=== PATIENT | female | born 1975 | race Caucasian/White ===

== ENCOUNTER 2018-04-07 12:56 | Day surgery (SDC) | payer OTHER ==
[~2018-04-07] VITALS: Ht 162.6 cm; Wt 141.1 kg
[~2018-04-07 12:56] MED LIST: AMOX500 PO; ARIP10 PO; Abilify5 MG; CYCL10 PO; CYRED 28 DAY T1 EACH PO; ESTR.1TPW TOP; ESTR2 PO; GLIP5ER PO; HYDACE5 PO; HYDR1TAB94 PO; IBUHYD PO; IBUP600 PO; IBUP800 PO; LIDO2L MM; Lomotil Tablet1 EACH PO; METF500C PO; OXYB5 PO; PSEU120ER; Pseudoephedrine30 MG PO; SERT100 PO; SLEEP MEDICATION; TRAZ100 PO; TRAZ50 PO
== END 2018-04-07 22:55 | disposition home or self-care (01) ==
LOC: ORSCMMR 12:56 → ORD 15:00 → ORSCMMR 15:00
PROVIDERS: Internal Medicine Gastroenterology
PROC: 0DJD8ZZ Inspection of Lower Intestinal Tract, Via Natural or Artificial Opening Endoscopic (ICD-10-PCS; principal; 2018-04-07 15:00)
DX: Z12.11 Encounter for screening for malignant neoplasm of colon (principal); K64.4 Residual hemorrhoidal skin tags; Z86.010 Personal history of colon polyps; G47.33 Obstructive sleep apnea (adult) (pediatric); K21.9 Gastro-esophageal reflux disease without esophagitis; F32.9 Major depressive disorder, single episode, unspecified; E11.9 Type 2 diabetes mellitus without complications; E66.01 Morbid (severe) obesity due to excess calories; Z68.43 Body mass index [BMI] 50.0-59.9, adult; Z79.84 Long term (current) use of oral hypoglycemic drugs; Z79.899 Other long term (current) drug therapy
CPT/HCPCS: 82947; J7120

== ENCOUNTER → 2018-05-16 | Outpatient (CLI) | payer OTHER ==
[2018-05-16 17:13] LABS: Alanine Aminotransfer (ALT/SGP 74 U/L (12-78); Albumin, Blood 4.2 g/dL (3.4-5.0); Albumin/Globulin Ratio 1.2 (0.8-1.8); Alk Phos 76 U/L (50-136); Anion Gap 9 mmol/L (6-16); Aspartate Aminotrans (AST/SGOT 57 U/L (12-37); Bilirubin, Total 0.6 mg/dL (0.1-1.0); Blood Urea Nitrogen 9 mg/dL (8-24); CO2, Blood 23 mmol/L (21-32); Calcium, Blood 8.9 mg/dL (8.5-10.1); Chloride, Blood 106 mmol/L (98-108); Creatinine, Blood 0.75 mg/dL (0.40-1.00); Globulin, Blood 3.4 g/dL (2.2-4.0); Glomerular Filtration Rate >60 (60-); Glucose, Blood 158 mg/dL (70-99); Potassium, Blood 4.3 mmol/L (3.5-5.5); Sodium, Blood 138 mmol/L (136-145); Total Protein, Blood 7.6 g/dL (6.4-8.2)
== END | disposition home or self-care (01) ==
LOC: LAB SHORT 10:00 → LAB 10:00
PROVIDERS: Internal Medicine Hematology & Oncology
DX: R16.1 Splenomegaly, not elsewhere classified (principal)
CPT/HCPCS: 80053

== ENCOUNTER → 2018-05-17 | Outpatient (CLI) | payer OTHER ==
[2018-05-17 13:19] LABS: Adenovirus F 40/41 Not Detected (NOT DETECT); Astrovirus Not Detected (NOT DETECT); Campylobacter Sp Not Detected (NOT DETECT); Cryptosporidium Not Detected (NOT DETECT); Cyclospora Cayetanensis Not Detected (NOT DETECT); E. Coli O157 Not Detected (NOT DETECT); Entamoeba Histolytica Not Detected (NOT DETECT); Enteroaggregative E. coli-EAEC Not Detected (NOT DETECT); Enteropathogenic E. coli-EPEC Not Detected (NOT DETECT); Enterotoxigenic E. coli-ETEC Not Detected (NOT DETECT); Giardia Lamblia Not Detected (NOT DETECT); Norovirus GI/GII Not Detected (NOT DETECT); Plesiomonas Shigelloides Not Detected (NOT DETECT); Rotavirus A Not Detected (NOT DETECT); Salmonella Sp Not Detected (NOT DETECT); Sapovirus Not Detected (NOT DETECT); Shiga Toxin-prod E. coli-STEC Not Detected (NOT DETECT); Shigella/Enteroin E. coli-EIEC Not Detected (NOT DETECT); Vibrio Cholerae Not Detected (NOT DETECT); Vibrio Sp Not Detected (NOT DETECT); Yersinia Enterocolitica Not Detected (NOT DETECT)
== END | disposition home or self-care (01) ==
LOC: LAB SHORT 13:18 → LAB 13:18
PROVIDERS: Internal Medicine Hematology & Oncology
DX: R19.7 Diarrhea, unspecified (principal); R16.1 Splenomegaly, not elsewhere classified; R10.9 Unspecified abdominal pain
CPT/HCPCS: 87507

== ENCOUNTER 2018-09-20 06:00 | Day surgery (SDC) | payer OTHER ==
[~2018-09-20] VITALS: Ht 162.6 cm; Wt 133.4 kg
--- NOTE | 2018-09-20 07:00 | NUR ---
Ambulatory in [facility] warming gown applied. History, Chart, Medications and Allergies reviewed before start of procedure.Lungs clear T/O to Auscultation. Patient confirms NPO status and agrees with scheduled surgery. DIFFICULT TO PLACE IV. PT TOLERATING PROCEDURE WELL. STATES " THAT IS NORMAL FOR ME". MOM AT BEDSIDE.
--- NOTE | 2018-09-20 10:13 | NUR ---
PERCOCET GIVEN PER ORDER Discharge instructions reviewed with patient. Patient verbalizes understanding. Copy given to patient to take home. MOM AT BEDSIDE. VSS. PT ALSO GIVEN INFLATABLE CUSHION AND SQUIRT BOTTLE AND GAUZE TO TAKE HOME FOR USE.
--- NOTE | 2018-09-20 10:48 | NUR ---
Discharged via wheelchair to private car for ride home.
== END 2018-09-20 10:40 | disposition home or self-care (01) ==
LOC: ORSCMMR 06:00 → ORD 07:30 → ORSCMMR 07:30
PROVIDERS: Surgery
PROC: 06BY0ZC Excision of Hemorrhoidal Plexus, Open Approach (ICD-10-PCS; principal; 2018-09-20 07:30)
DX: K64.4 Residual hemorrhoidal skin tags (principal); K64.2 Third degree hemorrhoids; K64.1 Second degree hemorrhoids; E11.9 Type 2 diabetes mellitus without complications; G47.33 Obstructive sleep apnea (adult) (pediatric); E66.01 Morbid (severe) obesity due to excess calories; Z68.43 Body mass index [BMI] 50.0-59.9, adult; Z79.899 Other long term (current) drug therapy
CPT/HCPCS: 82947; 88304; J0330; J2250; J2370; J2710; J3010; J7120

== ENCOUNTER 2018-09-21 18:45 | Emergency (ER) | payer OTHER ==
[~2018-09-21] VITALS: Ht 162.6 cm; Wt 136.1 kg
[2018-09-21 21:30] LABS: Source, Urine Clean Catch
[2018-09-21 21:32] LABS: Appearance, Urine Clear (Clear); Bilirubin, Urine Neg (Neg); Blood, Urine Neg (Neg); Color, Urine Yellow (P-Yellow); Glucose Qualitative, Urine Neg (Neg); Ketones, Urine Neg (Neg); Leukocyte Esterase, Urine Neg (Neg); Nitrite, Urine Neg (Neg); Protein, Urine Neg (Neg); Urobilinogen, Urine NORM (Normal)
== END 2018-09-21 22:33 | disposition home or self-care (01) ==
LOC: ER 18:45
PROVIDERS: Emergency Medicine
DX: R33.9 Retention of urine, unspecified (principal); F32.9 Major depressive disorder, single episode, unspecified; Z79.899 Other long term (current) drug therapy
CPT/HCPCS: 51702; 51798; 81003; 99283

== ENCOUNTER → 2018-10-08 | Outpatient (CLI) | payer OTHER | END | disposition home or self-care (01) | LOC: LAB EV 17:11 → LAB SHORT 17:11 | DX: R10.9 Unspecified abdominal pain (principal) | CPT/HCPCS: 87086 ==

== ENCOUNTER 2018-12-06 23:59 | Emergency (ER) | payer OTHER ==
[~2018-12-06] VITALS: Ht 162.6 cm; Wt 136.1 kg
[2018-12-07 00:54] LABS: Alanine Aminotransfer (ALT/SGP 80 U/L (12-78); Albumin, Blood 3.5 g/dL (3.4-5.0); Alk Phos 87 U/L (50-136); Anion Gap 8 mmol/L (6-16); Aspartate Aminotrans (AST/SGOT 29 U/L (12-37); Bilirubin, Total 0.6 mg/dL (0.1-1.0); Blood Urea Nitrogen 12 mg/dL (8-24); Bun/Creatinine Ratio 15.5 (12.0-20.0); CO2, Blood 25 mmol/L (21-32); Calcium, Blood 8.4 mg/dL (8.5-10.1); Chloride, Blood 104 mmol/L (98-108); Creatinine, Blood 0.78 mg/dL (0.40-1.00); Globulin, Blood 3.6 g/dL (2.2-4.0); Glomerular Filtration Rate >60 (60-); Glucose, Blood 406 mg/dL (70-99); Potassium, Blood 3.8 mmol/L (3.5-5.5); Sodium, Blood 137 mmol/L (136-145); Total Protein, Blood 7.1 g/dL (6.4-8.2)
[2018-12-07] MEDS ORDERED: METF500 PO (02:04)
== END 2018-12-07 03:00 | disposition home or self-care (01) ==
LOC: ER 23:59
PROVIDERS: Emergency Medicine
DX: R73.9 Hyperglycemia, unspecified (principal); F32.9 Major depressive disorder, single episode, unspecified; G47.30 Sleep apnea, unspecified
CPT/HCPCS: 36415; 80053; 82947; 96360; 99284-25; J1815; J7030

== ENCOUNTER → 2019-05-02 | Outpatient (CLI) | payer OTHER ==
[~2019-05-02] MED LIST changes: +METF500 PO
== END | disposition home or self-care (01) ==
LOC: LAB SHORT 18:40 → LAB EV 18:40
DX: N39.0 Urinary tract infection, site not specified (principal)
CPT/HCPCS: 87086

== ENCOUNTER 2019-06-30 07:05 | Day surgery (SDC) | payer OTHER ==
[~2019-06-30] VITALS: Ht 154.9 cm; Wt 136.6 kg
[~2019-06-30 07:05] MED LIST changes: +BASAGLAR SC
--- NOTE | 2019-06-30 08:19 | NUR ---
History, Chart, Medications and Allergies reviewed before start of procedure. Patient States Post-Procedure ride home has been arranged. Lungs clear T/O to Auscultation.
--- NOTE | 2019-06-30 08:43 | NUR ---
06/30/19 0843 Dawn Reza PROCEDURED ROOM ENDO RM #1. MONITOR INTACT WITH CONTINUOUS PULSE OXIMETRY AND INTERMITTENT BP.
--- NOTE | 2019-06-30 09:25 | NUR ---
"DAY SURGERY RN | DISCHARGE VSS. A/O. DENIES PAIN AND NAUSEA. DISCHARGE INSTRUCTIONS GIVEN TO PATIENT. NO ISSUES. TAKEN IN WHEELCHAIR TO PATIENT ENTRANCE BY VOLUNTEER. FAMILY IS RIDE HOME."
== END 2019-06-30 23:52 | disposition home or self-care (01) ==
LOC: ORSCMMR 07:05 → ORD 08:30 → ORSCMMR 23:52
PROVIDERS: Internal Medicine Gastroenterology
PROC: 0DJ08ZZ Inspection of Upper Intestinal Tract, Via Natural or Artificial Opening Endoscopic (ICD-10-PCS; principal; 2019-06-30 08:30)
DX: K74.60 Unspecified cirrhosis of liver (principal); Z87.19 Personal history of other diseases of the digestive system; K21.9 Gastro-esophageal reflux disease without esophagitis; F32.9 Major depressive disorder, single episode, unspecified; G47.30 Sleep apnea, unspecified; E66.9 Obesity, unspecified; Z68.43 Body mass index [BMI] 50.0-59.9, adult; E55.9 Vitamin D deficiency, unspecified; E11.9 Type 2 diabetes mellitus without complications; Z79.82 Long term (current) use of aspirin; Z79.899 Other long term (current) drug therapy
CPT/HCPCS: 82947; J2001; J2250; J2704; J7120

== ENCOUNTER → 2019-08-04 | Outpatient (CLI) | payer OTHER ==
[2019-08-04 19:10] LABS: BASOPHILS ABSOLUTE AUTO 0.04 K/mm3 (0.00-0.23); BASOPHILS PERCENT AUTO 1 % (0-2); EOSINOPHILS ABSOLUTE AUTO 0.12 K/mm3 (0.00-0.68); EOSINOPHILS PERCENT AUTO 3 % (0-6); Hematocrit 40.7 % (33.0-51.0); Hemoglobin 14.3 g/dL (11.5-16.0); IMMATURE GRAN ABSOLUTE AUTO 0.01 K/mm3 (0.00-0.10); IMMATURE GRAN PERCENT AUTO 0 % (0-1); LYMPHOCYTES ABSOLUTE AUTO 1.89 K/mm3 (0.84-5.20); LYMPHOCYTES PERCENT AUTO 44 % (21-46); MONOCYTES ABSOLUTE AUTO 0.34 K/mm3 (0.16-1.47); MONOCYTES PERCENT AUTO 8 % (4-13); Mean Corpuscular HGB 31.8 pg (26.0-34.0); Mean Corpuscular HGB Conc 35.1 g/dL (31.5-36.5); Mean Corpuscular Volume 90 fL (80-100); NEUTROPHILS ABSOLUTE AUTO 1.92 K/mm3 (1.96-9.15); NEUTROPHILS PERCENT AUTO 44 % (41-73); RDW Standard Deviation 42.6 fL (35.1-46.3); White Blood Cell Count 4.32 K/mm3 (4.00-11.30)
[2019-08-04 19:11] LABS: Mean Platelet Volume 11.1 fL (9.1-12.4); Platelet Count 140 K/mm3 (150-400)
[2019-08-04 19:20] LABS: Albumin/Globulin Ratio 1.1 (0.8-1.8); Bilirubin, Total 0.7 mg/dL (0.1-1.0); Bun/Creatinine Ratio 13.3 (12.0-20.0); Calcium, Blood 8.7 mg/dL (8.5-10.1); Creatinine, Blood 1.05 mg/dL (0.40-1.00); Globulin, Blood 3.6 g/dL (2.2-4.0); Potassium, Blood 3.7 mmol/L (3.5-5.5); Total Protein, Blood 7.6 g/dL (6.4-8.2)
== END ==
LOC: LAB SHORT 19:04 → LAB EV 19:04
PROVIDERS: Nurse Practitioner
DX: R10.9 Unspecified abdominal pain (principal)
CPT/HCPCS: 80053; 85025

== ENCOUNTER → 2019-08-07 | Outpatient (CLI) | payer OTHER ==
[2019-08-07 14:37] LABS: Candida species (DNA Probe) Negative (NEGATIVE); G. vaginalis (DNA Probe) Negative (NEGATIVE); T. vaginalis (DNA Probe) Negative (NEGATIVE)
== END | disposition home or self-care (01) ==
LOC: LAB SHORT 11:20 → LAB 11:20
PROVIDERS: Nurse Practitioner Family
DX: L29.3 Anogenital pruritus, unspecified (principal)
CPT/HCPCS: 87480; 87510; 87660

== ENCOUNTER → 2019-11-28 | Outpatient (CLI) | payer OTHER | END | disposition home or self-care (01) | LOC: LAB EV 18:51 → LAB SHORT 18:51 | DX: R89.5 Abnormal microbiological findings in specimens from other organs, systems and tissues (principal) | CPT/HCPCS: 87086 ==

== ENCOUNTER → 2020-05-09 | Outpatient (CLI) | payer OTHER | END | disposition home or self-care (01) | LOC: LAB EV 19:17 → LAB SHORT 19:17 | DX: R30.0 Dysuria (principal) | CPT/HCPCS: 87086 ==

== ENCOUNTER 2020-07-26 06:09 | Day surgery (SDC) | payer OTHER ==
[~2020-07-26] VITALS: Ht 162.6 cm; Wt 137.5 kg
--- NOTE | 2020-07-26 07:14 | NUR ---
Ambulatory in Day Surgery. History, Chart, Medications and Allergies reviewed before start of procedure. Patient confirms NPO status and agrees with scheduled surgery. Patient States Post-Procedure ride home has been arranged.
--- NOTE | 2020-07-26 08:10 | NUR ---
07/26/20 0810 Manuelito Pinzon See Anesthesia record. Bite Block PlacedPatient to ENDO 1. History, Chart, Medications and Allergies reviewed before start of procedure. MONITOR INTACT WITH CONTINUOUS PULSE OXIMETRY AND INTERMITTENT BP.O2 VIA N/C INTACT THROUGHOUT SEDATION/PROCEDURE.
--- NOTE | 2020-07-26 08:59 | NUR ---
Patient up to Ambulate independently. Gait steady. Discharge instructions reviewed with patient. Patient verbalizes understanding. Copy given to patient to take home. Discharged via wheelchair to private car for ride home WITH DAUGHTER. JAYDA DENIES QUESTIONS OR CONCERNS.
== END 2020-07-26 23:14 | disposition home or self-care (01) ==
LOC: ORSCMMR 06:09 → ORD 08:00 → ORSCMMR 08:00
PROVIDERS: Internal Medicine Gastroenterology
PROC: 0DB98ZX Excision of Duodenum, Via Natural or Artificial Opening Endoscopic, Diagnostic (ICD-10-PCS; principal; 2020-07-26 08:00)
DX: Z85.01 Personal history of malignant neoplasm of esophagus (principal); Z13.810 Encounter for screening for upper gastrointestinal disorder; K44.9 Diaphragmatic hernia without obstruction or gangrene; K21.9 Gastro-esophageal reflux disease without esophagitis; G47.33 Obstructive sleep apnea (adult) (pediatric); K74.60 Unspecified cirrhosis of liver; E11.9 Type 2 diabetes mellitus without complications; E66.01 Morbid (severe) obesity due to excess calories; Z68.43 Body mass index [BMI] 50.0-59.9, adult; Z79.4 Long term (current) use of insulin
CPT/HCPCS: 82947; 88305; J2001; J2250; J2704; J7120

== ENCOUNTER 2020-10-22 11:16 | Emergency (ER) | payer OTHER ==
[~2020-10-22] VITALS: Ht 162.6 cm; Wt 139.7 kg
[2020-10-22] MEDS ORDERED: BENZ100A PO (13:47)
[2020-10-22] MEDS ORDERED: DEXA4 PO (13:47)
== END 2020-10-22 14:32 | disposition home or self-care (01) ==
LOC: ER 11:16
DX: U07.1 COVID-19 (principal); J12.82 Pneumonia due to coronavirus disease 2019; J40 Bronchitis, not specified as acute or chronic; E66.9 Obesity, unspecified; Z79.899 Other long term (current) drug therapy
CPT/HCPCS: 71045; 93005; 93010; 94640; 99283-25; A9270; J1100

== ENCOUNTER → 2020-11-30 | Outpatient (CLI) | payer OTHER ==
[~2020-11-30] MED LIST changes: +BENZ100A PO; +DEXA4 PO
== END | disposition home or self-care (01) ==
LOC: LAB EV 12:01 → LAB SHORT 12:01
DX: N39.0 Urinary tract infection, site not specified (principal)
CPT/HCPCS: 87086

== ENCOUNTER → 2021-05-06 | Outpatient (CLI) | payer OTHER | LOC: LAB 12:11 → LAB SHORT 12:11 | DX: N39.0 Urinary tract infection, site not specified (principal) | CPT/HCPCS: 87086 ==

== ENCOUNTER 2021-11-11 09:38 | Day surgery (SDC) | payer OTHER ==
[~2021-11-11] VITALS: Ht 162.6 cm; Wt 138.8 kg
[2021-11-11] MEDS ORDERED: INSULANPEN SC (10:07)
== END 2021-11-11 12:03 | disposition home or self-care (01) ==
LOC: ORSCSDS 09:38
PROVIDERS: Internal Medicine Gastroenterology
PROC: 0DBK8ZX Excision of Ascending Colon, Via Natural or Artificial Opening Endoscopic, Diagnostic (ICD-10-PCS; principal; 2021-11-11 10:45)
PROC: 0DB98ZX Excision of Duodenum, Via Natural or Artificial Opening Endoscopic, Diagnostic (ICD-10-PCS; principal; 2021-11-11 10:45)
PROC: 0DB78ZX Excision of Stomach, Pylorus, Via Natural or Artificial Opening Endoscopic, Diagnostic (ICD-10-PCS; principal; 2021-11-11 10:45)
DX: K92.1 Melena (principal); K29.70 Gastritis, unspecified, without bleeding; K63.5 Polyp of colon; I10 Essential (primary) hypertension; G47.33 Obstructive sleep apnea (adult) (pediatric); E11.9 Type 2 diabetes mellitus without complications; K21.9 Gastro-esophageal reflux disease without esophagitis; K44.9 Diaphragmatic hernia without obstruction or gangrene; E66.01 Morbid (severe) obesity due to excess calories; Z68.43 Body mass index [BMI] 50.0-59.9, adult; Z79.4 Long term (current) use of insulin; Z79.899 Other long term (current) drug therapy
CPT/HCPCS: 82947; 88305; 88342; J2704; J7120

== ENCOUNTER 2021-12-05 16:23 | Emergency (ER) | payer OTHER ==
[~2021-12-05] VITALS: Ht 162.6 cm; Wt 140.6 kg
[~2021-12-05 16:23] MED LIST changes: +INSULANPEN SC
[2021-12-05 17:22] LABS: BASOPHILS ABSOLUTE AUTO 0.03 K/mm3 (0.00-0.23); BASOPHILS PERCENT AUTO 1 % (0-2); EOSINOPHILS ABSOLUTE AUTO 0.12 K/mm3 (0.00-0.68); EOSINOPHILS PERCENT AUTO 3 % (0-6); IMMATURE GRAN ABSOLUTE AUTO 0.01 K/mm3 (0.00-0.10); IMMATURE GRAN PERCENT AUTO 0 % (0-1); LYMPHOCYTES ABSOLUTE AUTO 1.63 K/mm3 (0.84-5.20); LYMPHOCYTES PERCENT AUTO 39 % (21-46); MONOCYTES ABSOLUTE AUTO 0.39 K/mm3 (0.16-1.47); MONOCYTES PERCENT AUTO 9 % (4-13); Mean Corpuscular HGB Conc 34.1 g/dL (31.5-36.5); Mean Corpuscular Volume 91 fL (80-100); Mean Platelet Volume 10.4 fL (9.1-12.4); NEUTROPHILS ABSOLUTE AUTO 2.03 K/mm3 (1.96-9.15); NEUTROPHILS PERCENT AUTO 48 % (41-73); Platelet Count 119 K/mm3 (150-400); RDW Coefficient Variation 13.6 % (11.7-14.2); RDW Standard Deviation 45.6 fL (35.1-46.3); Red Blood Cell Count 4.84 M/mm3 (3.80-5.20); White Blood Cell Count 4.21 K/mm3 (4.00-11.30)
[2021-12-05 19:00] LABS: C-REACTIVE PROTEIN, EXT RANGE 0.467 mg/dL (0.000-0.300)
[2021-12-05 19:02] LABS: Alanine Aminotransfer (ALT/SGP 35 U/L (12-78); Albumin, Blood 3.9 g/dL (3.4-5.0); Alk Phos 91 U/L (50-136); Anion Gap 6 mmol/L (6-16); Aspartate Aminotrans (AST/SGOT 20 U/L (12-37); Bilirubin, Total 0.6 mg/dL (0.1-1.0); Blood Urea Nitrogen 8 mg/dL (8-24); Bun/Creatinine Ratio 9.4 (12.0-20.0); CO2, Blood 26 mmol/L (21-32); Calcium, Blood 8.7 mg/dL (8.5-10.1); Chloride, Blood 108 mmol/L (98-108); Creatinine, Blood 0.85 mg/dL (0.40-1.00); Globulin, Blood 3.9 g/dL (2.2-4.0); Glomerular Filtration Rate >60 (60-); Glucose, Blood 109 mg/dL (70-99); Potassium, Blood 3.9 mmol/L (3.5-5.5); Sodium, Blood 140 mmol/L (136-145); Total Protein, Blood 7.8 g/dL (6.4-8.2)
[2021-12-06] MEDS ORDERED: OXYC5 PO ×2 (14:38→14:42)
== END 2021-12-05 19:56 | disposition home or self-care (01) ==
LOC: ER 16:23
PROVIDERS: Physician Assistant
DX: M54.2 Cervicalgia (principal); G47.30 Sleep apnea, unspecified; Z79.899 Other long term (current) drug therapy; Z79.4 Long term (current) use of insulin
CPT/HCPCS: 70491; 80053; 85025; 86140; 99284-25; Q9967

== ENCOUNTER 2021-12-06 10:32 | Emergency (ER) | payer OTHER ==
[~2021-12-06] VITALS: Ht 162.6 cm; Wt 140.6 kg
[2021-12-06] MEDS ORDERED: OXYC5 PO ×2 (14:38→14:42)
== END 2021-12-06 14:59 | disposition home or self-care (01) ==
LOC: ER 10:32
DX: M54.12 Radiculopathy, cervical region (principal); E66.9 Obesity, unspecified; Z68.43 Body mass index [BMI] 50.0-59.9, adult; G47.00 Insomnia, unspecified; Z79.4 Long term (current) use of insulin
CPT/HCPCS: 99281

== ENCOUNTER 2022-06-28 18:11 | Emergency (ER) | payer OTHER ==
[~2022-06-28] VITALS: Ht 162.6 cm; Wt 136.1 kg
[~2022-06-28 18:11] MED LIST changes: +OXYC5 PO
[2022-06-28 19:21] LABS: BASOPHILS ABSOLUTE AUTO 0.04 K/mm3 (0.00-0.23); BASOPHILS PERCENT AUTO 1 % (0-2); EOSINOPHILS ABSOLUTE AUTO 0.14 K/mm3 (0.00-0.68); EOSINOPHILS PERCENT AUTO 3 % (0-6); Hematocrit 40.6 % (33.0-51.0); Hemoglobin 14.4 g/dL (11.5-16.0); IMMATURE GRAN ABSOLUTE AUTO 0.04 K/mm3 (0.00-0.10); IMMATURE GRAN PERCENT AUTO 1 % (0-1); LYMPHOCYTES PERCENT AUTO 32 % (21-46); MONOCYTES ABSOLUTE AUTO 0.57 K/mm3 (0.16-1.47); MONOCYTES PERCENT AUTO 13 % (4-13); Mean Corpuscular HGB Conc 35.5 g/dL (31.5-36.5); Mean Corpuscular Volume 87 fL (80-100); NEUTROPHILS ABSOLUTE AUTO 2.14 K/mm3 (1.96-9.15); NEUTROPHILS PERCENT AUTO 50 % (41-73); NRBC ABSOLUTE 0.02 K/mm3 (0.00-0.02); NRBC Auto 0.5 /100 WBC (0.0-0.2); RDW Standard Deviation 44.7 fL (35.1-46.3); Red Blood Cell Count 4.65 M/mm3 (3.80-5.20); White Blood Cell Count 4.33 K/mm3 (4.00-11.30)
[2022-06-28 19:28] LABS: Albumin, Blood 3.6 g/dL (3.4-5.0); Albumin/Globulin Ratio 0.9 (0.8-1.8); Bilirubin, Total 0.8 mg/dL (0.1-1.0); Bun/Creatinine Ratio 15.7 (12.0-20.0); Calcium, Blood 8.8 mg/dL (8.5-10.1); Creatinine, Blood 0.76 mg/dL (0.40-1.00); Globulin, Blood 4.1 g/dL (2.2-4.0); Potassium, Blood 3.9 mmol/L (3.5-5.5); Total Protein, Blood 7.7 g/dL (6.4-8.2)
[2022-06-28 19:34] LABS: Influenza A, PCR NEGATIVE (NEGATIVE); Influenza B, PCR NEGATIVE (NEGATIVE); Resp Syncytial Virus, PCR NEGATIVE (NEGATIVE); SARS-Cov-2 (COVID-19) PCR, MMC NEGATIVE (NEGATIVE)
[2022-06-28 19:37] LABS: Platelet Count 117 K/mm3 (150-400)
[2022-06-29] MEDS ORDERED: Flagyl500 MG PO (00:01)
[2022-06-29] MEDS ORDERED: Norco 5-325 Ta1 EACH PO (00:01)
[2022-06-29] MEDS ORDERED: AMOCLA875 PO (00:01)
[2022-06-29] MEDS ORDERED: Gyne-Lotrimin21 GM TOP (00:32)
== END 2022-06-29 00:48 | disposition home or self-care (01) ==
LOC: ER 18:11
PROVIDERS: Emergency Medicine
DX: K52.9 Noninfective gastroenteritis and colitis, unspecified (principal); Z79.4 Long term (current) use of insulin; Z20.822 Contact with and (suspected) exposure to COVID-19
CPT/HCPCS: 0241U; 36415; 74177; 80053; 83690; 85025; A9270; J2270; J2405; J7030; Q9967

== ENCOUNTER → 2023-02-15 | Outpatient (CLI) | payer OTHER ==
[~2023-02-15] MED LIST changes: +AMOCLA875 PO; +Flagyl500 MG PO; +Gyne-Lotrimin21 GM TOP; +Norco 5-325 Ta1 EACH PO
== END ==
LOC: LAB 18:47 → LAB SHORT 18:47
DX: R30.0 Dysuria (principal)
CPT/HCPCS: 87086

== ENCOUNTER → 2023-02-18 | Outpatient (CLI) | payer OTHER | END | disposition home or self-care (01) | LOC: LAB SHORT 18:48 → LAB 18:48 | DX: R30.0 Dysuria (principal) | CPT/HCPCS: 87086 ==

== ENCOUNTER → 2023-02-27 | Outpatient (CLI) | payer OTHER ==
[2023-02-28 11:56] LABS: Candida species (DNA Probe) Positive (NEGATIVE); G. vaginalis (DNA Probe) Positive (NEGATIVE); T. vaginalis (DNA Probe) Negative (NEGATIVE)
== END | disposition home or self-care (01) ==
LOC: LAB 13:56 → LAB SHORT 13:56
PROVIDERS: Emergency Medicine
DX: B37.31 Acute candidiasis of vulva and vagina (principal)
CPT/HCPCS: 87480; 87510; 87660

== ENCOUNTER → 2023-03-10 | Outpatient (CLI) | payer OTHER ==
[2023-03-10 15:56] LABS: Albumin, Blood 3.9 g/dL (3.4-5.0); Albumin/Globulin Ratio 0.9 (0.8-1.8); Bilirubin, Total 0.8 mg/dL (0.1-1.0); Bun/Creatinine Ratio 10.6 (12.0-20.0); Creatinine, Blood 0.94 mg/dL (0.40-1.00); Globulin, Blood 4.3 g/dL (2.2-4.0); Magnesium, Blood 1.9 mg/dL (1.6-2.4); Potassium, Blood 4.1 mmol/L (3.5-5.5); Total Protein, Blood 8.2 g/dL (6.4-8.2)
[2023-03-10 16:04] LABS: BASOPHILS ABSOLUTE AUTO 0.04 K/mm3 (0.00-0.23); BASOPHILS PERCENT AUTO 1 % (0-2); EOSINOPHILS ABSOLUTE AUTO 0.27 K/mm3 (0.00-0.68); EOSINOPHILS PERCENT AUTO 7 % (0-6); Hematocrit 45.8 % (33.0-51.0); Hemoglobin 15.6 g/dL (11.5-16.0); IMMATURE GRAN ABSOLUTE AUTO 0.01 K/mm3 (0.00-0.10); IMMATURE GRAN PERCENT AUTO 0 % (0-1); LYMPHOCYTES ABSOLUTE AUTO 1.37 K/mm3 (0.84-5.20); LYMPHOCYTES PERCENT AUTO 35 % (21-46); MONOCYTES ABSOLUTE AUTO 0.39 K/mm3 (0.16-1.47); MONOCYTES PERCENT AUTO 10 % (4-13); Mean Corpuscular HGB 31.1 pg (26.0-34.0); Mean Corpuscular HGB Conc 34.1 g/dL (31.5-36.5); Mean Corpuscular Volume 91 fL (80-100); NEUTROPHILS ABSOLUTE AUTO 1.85 K/mm3 (1.96-9.15); NEUTROPHILS PERCENT AUTO 47 % (41-73); RDW Standard Deviation 46.3 fL (35.1-46.3); Red Blood Cell Count 5.02 M/mm3 (3.80-5.20); White Blood Cell Count 3.93 K/mm3 (4.00-11.30)
[2023-03-10 16:39] LABS: Mean Platelet Volume 10.7 fL (9.1-12.4); Platelet Count 106 K/mm3 (150-400)
== END ==
LOC: LAB 15:41 → LAB SHORT 15:41
PROVIDERS: Chiropractor
DX: R73.9 Hyperglycemia, unspecified (principal)
CPT/HCPCS: 80053; 83735; 85025

== ENCOUNTER → 2023-03-29 | Outpatient (CLI) | payer OTHER ==
[2023-03-30 11:24] LABS: Candida species (DNA Probe) Negative (NEGATIVE); G. vaginalis (DNA Probe) Negative (NEGATIVE); T. vaginalis (DNA Probe) Negative (NEGATIVE)
== END | disposition home or self-care (01) ==
LOC: LAB 11:39 → LAB SHORT 11:39
PROVIDERS: Family Medicine
DX: N89.8 Other specified noninflammatory disorders of vagina (principal)
CPT/HCPCS: 87480; 87510; 87660

== ENCOUNTER → 2023-09-06 | Outpatient (CLI) | payer OTHER | END | disposition home or self-care (01) | LOC: LAB SHORT 17:02 → LAB 17:02 | DX: R30.0 Dysuria (principal); R35.0 Frequency of micturition | CPT/HCPCS: 87086 ==

== ENCOUNTER → 2023-09-24 | Outpatient (CLI) | payer OTHER | LOC: LAB 17:32 → LAB SHORT 17:32 | DX: N39.0 Urinary tract infection, site not specified (principal) | CPT/HCPCS: 87086 ==

== ENCOUNTER → 2023-10-01 | Outpatient (CLI) | payer OTHER ==
[2023-10-01 11:53] LABS: Source, Urine Clean Catch
[2023-10-01 18:47] LABS: Bacteria Few /hpf; Red Blood Cells, Urine 0-2 /hpf (0-2); Squamous Epithelial Cells Mod /hpf (Few); White Blood Cells, Urine 0-2 /hpf (0-5)
== END | disposition home or self-care (01) ==
LOC: LAB 11:51 → LAB SHORT 11:51
PROVIDERS: Physician Assistant Medical
DX: R30.9 Painful micturition, unspecified (principal)
CPT/HCPCS: 81015

== ENCOUNTER 2024-01-28 10:10 | Day surgery (SDC) | payer OTHER ==
[~2024-01-28] VITALS: Ht 162.6 cm; Wt 144.0 kg
[~2024-01-28 10:10] MED LIST changes: +ABILIFY MYCITE PO; +ALOGLIPTIN25 M1 PO; +ATOM40 PO; +BASAGLAR K100 UNIT/1 SC; +BRINTELLIX20 MG PO; +BYDUREON B2 MG/0.81 SC; +HUMALOG100 UNIT/1 SC; +Lactated Ringer's 1,000 ML IV SCH; +MACRODANTIN50 M1 PO; +MODA200 PO; +OMEP20ER PO; +ROSU5 PO; +STEGLATRO15 MG PO
[2024-01-28 10:49] VITALS: BP 134/72
--- NOTE | 2024-01-28 11:09 | NUR ---
Ambulatory in Day Surgery. History, Chart, Medications and Allergies reviewed before start of procedure. Lungs clear T/O to Auscultation. Patient confirms NPO status and agrees with scheduled surgery. Pre-Op teaching done. Pt verbalizes understanding. Patient States Post-Procedure ride home has been arranged. PT HAS PIERCINGS ON BOTH EARS, UNDERNEATH THE LIP, AND NIPPLES. PIERCINGS TAPED, JEWELRY CONSENT SIGNED.
[2024-01-28] MEDS ORDERED: propofoL 20 ML IV ONE ×2 (12:05→12:36)
[2024-01-28] MEDS ORDERED: Lidocaine HCl 4% 5 ML SDA ONE (12:10)
--- NOTE | 2024-01-28 12:16 | NUR ---
01/28/24 1216 Joaquin Ghosh History, Chart, Medications and Allergies reviewed before start of procedure.MONITOR INTACT WITH CONTINUOUS PULSE OXIMETRY, CONTINUOUS END TITAL CO2, AND INTERMITTENT BLOOD PRESSURE.3-LEAD EKG REVIEWED WITH PHYSICIAN PRIOR TO START OF PROCEDURE.O2 VIA POM INTACT THROUGHOUT SEDATION/PROCEDURE.See Anesthesia record.
[2024-01-28 12:55] VITALS: BP 130/62
--- NOTE | 2024-01-28 12:56 | NUR ---
REPORT RECEIVED FROM EYAL LARIOS. VSS. A&OX4. PT ON RA. PT ABLE TO REPOSITION SELF IN BED. PT REQUESTING PO FLUIDS AND TOLERATING THEM WELL. PT DENIES PAIN, NAUSEA OR OTHER DISCOMFORTS.
[2024-01-28 13:00] VITALS: BP 132/71
[2024-01-28 13:10] VITALS: BP 114/74
== END 2024-01-28 13:17 | disposition home or self-care (01) ==
LOC: ORSCMMR 10:10 → ORD 11:45 → ORSCMMR 13:17
PROVIDERS: Internal Medicine Gastroenterology
PROC: 0DJ08ZZ Inspection of Upper Intestinal Tract, Via Natural or Artificial Opening Endoscopic (ICD-10-PCS; principal; 2024-01-28 11:45)
DX: K74.60 Unspecified cirrhosis of liver (principal); Z86.018 Personal history of other benign neoplasm; E11.9 Type 2 diabetes mellitus without complications; I10 Essential (primary) hypertension; K21.9 Gastro-esophageal reflux disease without esophagitis; G47.33 Obstructive sleep apnea (adult) (pediatric); F41.9 Anxiety disorder, unspecified; E66.01 Morbid (severe) obesity due to excess calories; Z68.43 Body mass index [BMI] 50.0-59.9, adult; E78.5 Hyperlipidemia, unspecified; Z79.4 Long term (current) use of insulin; Z79.899 Other long term (current) drug therapy
CPT/HCPCS: 36415; 82105; 82947; J2001; J2704; J7120

== ENCOUNTER 2024-02-04 15:16 | Emergency (ER) | payer OTHER ==
[~2024-02-04] VITALS: Ht 162.6 cm; Wt 149.7 kg
[~2024-02-04 15:16] MED LIST changes: -Lactated Ringer's 1,000 ML IV SCH
[2024-02-04 15:39] VITALS: BP 135/108
[2024-02-04] MEDS ORDERED: CYCL10 PO (16:19)
== END 2024-02-04 16:21 | disposition home or self-care (01) ==
LOC: ER 15:16
DX: R05.9 Cough, unspecified (principal); Z79.899 Other long term (current) drug therapy; Z79.4 Long term (current) use of insulin; G47.30 Sleep apnea, unspecified; G47.00 Insomnia, unspecified
CPT/HCPCS: 71046; 99283-25

== ENCOUNTER → 2024-06-06 | Outpatient (CLI) | payer OTHER ==
[~2024-06-06] MED LIST changes: +BUSP5 PO; +CARV3.125
== END ==
LOC: LAB 18:02 → LAB SHORT 18:02
DX: R30.0 Dysuria (principal)
CPT/HCPCS: 87086

== ENCOUNTER 2024-06-12 09:59 | Day surgery (SDC) | payer OTHER ==
[~2024-06-12] VITALS: Ht 165.1 cm; Wt 144.2 kg
[~2024-06-12 09:59] MED LIST changes: -BUSP5 PO; -CARV3.125; +Lactated Ringer's 1,000 ML IV ONE
[2024-06-12] MEDS ORDERED: CARV3.125 (10:57)
[2024-06-12] MEDS ORDERED: BUSP5 PO (10:57)
[2024-06-12] MEDS ORDERED: Midazolam HCl 1MG / ML 2ML Vial ONE (11:00)
[2024-06-12 11:02] VITALS: BP 128/82
[2024-06-12] MEDS ORDERED: Lactated Ringer's 1,000 ML IV ONE (11:03)
[2024-06-12] MEDS ORDERED: NS 50 ML IV ONE (11:08)
[2024-06-12] MEDS ORDERED: CeFAZolin Sodium 2,000 MG VIAL ONE (11:08)
--- NOTE | 2024-06-12 11:18 | NUR ---
06/12/[address] INJECTED 9CC OF SYRINGE WITH 9CC 1% LIDOCAINE AND 1CC SODIUM BICARBONATE INTO R WRIST AT 1109. PT TOLERATED WELL
[2024-06-12] MEDS ORDERED: propofoL 20 ML IV ONE (11:19)
[2024-06-12] MEDS ORDERED: Lidocaine 1%-Epineph 1:100000 20 ML MDV INJ ONE ×2 (11:35)
== END 2024-06-12 12:19 | disposition home or self-care (01) ==
LOC: ORSCSDS 09:59
PROVIDERS: Orthopaedic Surgery
PROC: 0LN50ZZ Release Right Lower Arm and Wrist Tendon, Open Approach (ICD-10-PCS; principal; 2024-06-12 11:30)
DX: M65.4 Radial styloid tenosynovitis [de Quervain] (principal); E11.9 Type 2 diabetes mellitus without complications; I10 Essential (primary) hypertension; E78.5 Hyperlipidemia, unspecified; K21.9 Gastro-esophageal reflux disease without esophagitis; K76.0 Fatty (change of) liver, not elsewhere classified; G47.33 Obstructive sleep apnea (adult) (pediatric); E66.01 Morbid (severe) obesity due to excess calories; Z68.43 Body mass index [BMI] 50.0-59.9, adult; Z79.4 Long term (current) use of insulin; Z79.899 Other long term (current) drug therapy
CPT/HCPCS: 82947; J0690; J2250; J2704; J7120

== ENCOUNTER → 2024-08-17 | Outpatient (CLI) | payer OTHER ==
[~2024-08-17] MED LIST changes: +BUSP5 PO; +CARV3.125; -Lactated Ringer's 1,000 ML IV ONE
== END ==
LOC: LAB SHORT 17:41 → LAB 17:41
DX: N30.90 Cystitis, unspecified without hematuria (principal)
CPT/HCPCS: 87077; 87086; 87186

== ENCOUNTER 2024-09-03 16:03 | Emergency (ER) | payer OTHER ==
[~2024-09-03] VITALS: Ht 162.6 cm; Wt 122.5 kg
[2024-09-03] MEDS ORDERED: Ondansetron HCl 2 MG / ML 2ML Vial IV ONE (16:25)
[2024-09-03 16:48] LABS: BASOPHILS ABSOLUTE AUTO 0.03 K/mm3 (0.00-0.23); BASOPHILS PERCENT AUTO 1 % (0-2); EOSINOPHILS ABSOLUTE AUTO 0.05 K/mm3 (0.00-0.68); EOSINOPHILS PERCENT AUTO 1 % (0-6); Hematocrit 43.4 % (33.0-51.0); Hemoglobin 15.5 g/dL (11.5-16.0); IMMATURE GRAN PERCENT AUTO 0 % (0-1); LYMPHOCYTES ABSOLUTE AUTO 1.31 K/mm3 (0.84-5.20); LYMPHOCYTES PERCENT AUTO 33 % (21-46); MONOCYTES ABSOLUTE AUTO 0.35 K/mm3 (0.16-1.47); MONOCYTES PERCENT AUTO 9 % (4-13); Mean Corpuscular HGB 32.6 pg (26.0-34.0); Mean Corpuscular HGB Conc 35.7 g/dL (31.5-36.5); Mean Corpuscular Volume 91 fL (80-100); Mean Platelet Volume 10.5 fL (9.1-12.4); NEUTROPHILS ABSOLUTE AUTO 2.27 K/mm3 (1.96-9.15); NEUTROPHILS PERCENT AUTO 57 % (41-73); Platelet Count 107 K/mm3 (150-400); RDW Coefficient Variation 13.9 % (11.7-14.2); RDW Standard Deviation 46.3 fL (35.1-46.3); Red Blood Cell Count 4.75 M/mm3 (3.80-5.20); White Blood Cell Count 4.01 K/mm3 (4.00-11.30)
[2024-09-03 17:08] LABS: Albumin, Blood 4.2 g/dL (3.4-5.0); Albumin/Globulin Ratio 1.2 (0.8-1.8); Bilirubin, Total 2.2 mg/dL (0.1-1.0); Bun/Creatinine Ratio 10.5 (12.0-20.0); Calcium, Blood 9.2 mg/dL (8.5-10.1); Creatinine, Blood 0.95 mg/dL (0.40-1.00); Globulin, Blood 3.6 g/dL (2.2-4.0); Potassium, Blood 4.4 mmol/L (3.5-5.5); Total Protein, Blood 7.8 g/dL (6.4-8.2)
[2024-09-03] MEDS ORDERED: ONDA4 PO (23:48)
[2024-09-04] VITALS: BP 129/92
== END 2024-09-04 00:01 | disposition home or self-care (01) ==
LOC: ER 16:03
PROVIDERS: Student in an Organized Health Care Education/Training Program
DX: R11.2 Nausea with vomiting, unspecified (principal); R17 Unspecified jaundice; Z79.84 Long term (current) use of oral hypoglycemic drugs; Z79.85 Long-term (current) use of injectable non-insulin antidiabetic drugs
CPT/HCPCS: 80053; 82947; 83690; 85025; 96374; 99284-25; J2405

== ENCOUNTER 2024-11-27 06:23 | Day surgery (SDC) | payer OTHER ==
[~2024-11-27] VITALS: Ht 162.6 cm; Wt 142.0 kg
[~2024-11-27 06:23] MED LIST changes: +Lidocaine 1%-Epineph 1:100000 20 ML MDV ONE; +ONDA4 PO; +Sodium Bicarb 8.4% 1 MEQ/ML 50 ML Vial ONE
[2024-11-27] MEDS ORDERED: NS 500 ML IV ONE ×2 (06:28→07:07)
[2024-11-27] MEDS ORDERED: ALBU90OI INH (06:44)
[2024-11-27] MEDS ORDERED: OZEMPIC1 MG/0.72 SQ (06:45)
[2024-11-27] MEDS ORDERED: FentaNYL Citrate 50 MCG/ML 2 ML Injection ONE (06:48)
[2024-11-27] MEDS ORDERED: propofoL 20 ML IV ONE (06:48)
[2024-11-27] MEDS ORDERED: CeFAZolin Sodium 3,000 MG VIAL ONE (06:49)
[2024-11-27] MEDS ORDERED: Robaxin750 MG PO (06:51)
[2024-11-27] MEDS ORDERED: Insulin Regular 100 UNIT/ML 10ML Vial ONE (07:09)
[2024-11-27] MEDS ORDERED: Midazolam HCl 1MG / ML 2ML Vial ONE (07:34)
[2024-11-27 08:04] VITALS: BP 116/64
--- NOTE | 2024-11-27 08:21 | NUR ---
11/27/24 0821 JARAD JULIAN VERBAL ORDER TO RECHECK PT SUGAR FROM DR. BETTENCOURT AT 0805. REPEAT BG AT APPROX 0808 WAS 301. SPOKE WITH DR BETTENCOURT FACE TO FACE AT THIS TIME VERBAL ORDER TO GIVE 6 UNITS SQ HUMULIN R AND ADVISE PT TO RECHECK BG AT HOME. PT EDUCATED AND VERBALIZED UNDERSTANDING.
== END 2024-11-27 08:36 | disposition home or self-care (01) ==
LOC: ORSCSDS 06:23
PROVIDERS: Orthopaedic Surgery
PROC: 0LN60ZZ Release Left Lower Arm and Wrist Tendon, Open Approach (ICD-10-PCS; principal; 2024-11-27 07:30)
PROC: 01N54ZZ Release Median Nerve, Percutaneous Endoscopic Approach (ICD-10-PCS; principal; 2024-11-27 07:30)
DX: G56.02 Carpal tunnel syndrome, left upper limb (principal); M65.4 Radial styloid tenosynovitis [de Quervain]; R78.5 Finding of other psychotropic drug in blood; E11.9 Type 2 diabetes mellitus without complications; K74.60 Unspecified cirrhosis of liver; G47.33 Obstructive sleep apnea (adult) (pediatric); I10 Essential (primary) hypertension; K21.9 Gastro-esophageal reflux disease without esophagitis; K75.81 Nonalcoholic steatohepatitis (NASH); E78.5 Hyperlipidemia, unspecified; Z79.4 Long term (current) use of insulin; Z79.899 Other long term (current) drug therapy
CPT/HCPCS: 82947; J0690; J1815; J2250; J2704; J3010; J7040

== ENCOUNTER 2025-04-06 09:00 | Day surgery (SDC) | payer OTHER ==
[~2025-04-06] VITALS: Ht 162.6 cm; Wt 149.0 kg
[~2025-04-06 09:00] MED LIST changes: +ALBU90OI INH; -CARV3.125; +CARV3.125 PO; +CELE200 PO; +CYCLOBENZAPRINE5 MG PO; +DOXYLAMINE PO; -Lidocaine 1%-Epineph 1:100000 20 ML MDV ONE; +OZEMPIC1 MG/0.72 SQ; +Robaxin750 MG PO; +SUNOSI75 MG PO; -Sodium Bicarb 8.4% 1 MEQ/ML 50 ML Vial ONE
[2025-04-06 09:19] VITALS: BP 112/91
[2025-04-06] MEDS ORDERED: Benzocaine Oral Spray 0.5ML UD ONE (09:34)
--- NOTE | 2025-04-06 09:37 | NUR ---
04/06/[address] SEE ANESTHESIA RECORDS.
--- NOTE | 2025-04-06 09:37 | NUR ---
History, Chart, Medications and Allergies reviewed before start of procedure. Patient confirms NPO status and agrees with scheduled surgery. Lungs clear T/O to Auscultation. Pre-Op teaching done. Pt verbalizes understanding.
[2025-04-06 10:04] VITALS: BP 103/62
--- NOTE | 2025-04-06 10:06 | NUR ---
DR. RECINOS TALKING W/ PT RE: HER PROCEDURE. ABLE TO SEE ESOPHAGUS, ONE FOSTER NOTED BUT NOT BANDED AT THIS TIME. PROCEDURE ABORTED D/T FULL STOMACH. PT TO KEEP HER F/U APPT.
--- NOTE | 2025-04-06 10:16 | NUR ---
Patient up to Ambulate independently. Gait steady. Discharge instructions reviewed with patient. Patient verbalizes understanding. Copy given to patient to take home. Discharged via wheelchair to private car for ride home.
== END 2025-04-06 10:16 | disposition home or self-care (01) ==
LOC: ORSCMMR 09:00 → ORD 10:45 → ORSCMMR 10:45 → ORD 11:30
PROVIDERS: Internal Medicine Gastroenterology
PROC: 0DJ08ZZ Inspection of Upper Intestinal Tract, Via Natural or Artificial Opening Endoscopic (ICD-10-PCS; principal; 2025-04-06 10:45)
DX: K74.60 Unspecified cirrhosis of liver (principal); I85.10 Secondary esophageal varices without bleeding; K21.9 Gastro-esophageal reflux disease without esophagitis; R11.0 Nausea; E11.9 Type 2 diabetes mellitus without complications; E78.5 Hyperlipidemia, unspecified; I10 Essential (primary) hypertension; Z79.899 Other long term (current) drug therapy
CPT/HCPCS: 82947; A9270; J2704; J7120

== ENCOUNTER 2025-07-06 06:35 | Day surgery (SDC) | payer OTHER ==
[~2025-07-06] VITALS: Ht 162.6 cm; Wt 154.5 kg
[~2025-07-06 06:35] MED LIST changes: +NITR100CA PO; +SLEEP AID ULTRA25 MG PO
[2025-07-06 07:27] VITALS: BP 113/63
--- NOTE | 2025-07-06 07:35 | NUR ---
History, Chart, Medications and Allergies reviewed before start of procedure. Patient confirms NPO status and agrees with scheduled surgery. Pre-Op teaching done. Pt verbalizes understanding. Lungs clear T/O to Auscultation.
[2025-07-06] MEDS ORDERED: Benzocaine Oral Spray 0.5ML UD ONE (07:38)
--- NOTE | 2025-07-06 08:07 | NUR ---
07/06/25 [address] MICHAELS ANESTHESIA NOTES.
[2025-07-06 08:17] VITALS: BP 140/89
--- NOTE | 2025-07-06 08:23 | NUR ---
DR HOGAN AT BEDSIDE REVIEWING RESULTS OF EGD WITH PATIENT.
[2025-07-06 08:30] VITALS: BP 140/75
[2025-07-06 08:37] VITALS: BP 130/52
--- NOTE | 2025-07-06 08:49 | NUR ---
Patient up to Ambulate independently. Gait steady. Discharge instructions reviewed with patient. Patient verbalizes understanding. Copy given to patient to take home. Patient States Post-Procedure ride home has been arranged. Discharged via wheelchair to private car for ride home. PT DENIES PAIN,N/V,SOB,CP. TOLERATING PO, REPORTS READY TO GO HOME.
== END 2025-07-06 08:49 | disposition home or self-care (01) ==
LOC: ORSCMMR 06:35 → ORD 08:00 → ORSCMMR 08:00
PROVIDERS: Internal Medicine Gastroenterology
PROC: 0DJ08ZZ Inspection of Upper Intestinal Tract, Via Natural or Artificial Opening Endoscopic (ICD-10-PCS; principal; 2025-07-06 08:00)
DX: K74.60 Unspecified cirrhosis of liver (principal); I85.10 Secondary esophageal varices without bleeding; R13.10 Dysphagia, unspecified; K75.81 Nonalcoholic steatohepatitis (NASH); G47.33 Obstructive sleep apnea (adult) (pediatric); E11.9 Type 2 diabetes mellitus without complications; I10 Essential (primary) hypertension; E78.5 Hyperlipidemia, unspecified; K21.9 Gastro-esophageal reflux disease without esophagitis; E66.01 Morbid (severe) obesity due to excess calories; Z68.43 Body mass index [BMI] 50.0-59.9, adult; Z79.4 Long term (current) use of insulin; Z79.899 Other long term (current) drug therapy
CPT/HCPCS: 82947; A9270; J2704; J7120